=== PATIENT | male | born 1965 | race Caucasian/White ===

== ENCOUNTER 2024-06-20 07:52 | Day surgery (SDC) | payer BC, OTHER ==
--- NOTE | 2024-06-18 11:10 | HP ---
HISTORY AND PHYSICAL HISTORY OF PRESENT ILLNESS: The patient is a 59-year-old male who presents for screening colonoscopy. Last scope was 10 years ago. He has no symptoms. PAST MEDICAL HISTORY: Arthritis, dysrhythmia. HOME MEDICATIONS: Multivitamin, aspirin, D3. ALLERGIES: Negative. PAST SURGICAL HISTORY: Tonsillectomy, hernia, shoulder, cervical spine. SOCIAL HISTORY: Occasional alcohol. FAMILY HISTORY: Hypertension, coronary artery disease, COPD. REVIEW OF SYSTEMS: CONSTITUTIONAL: Denies fever or chills. CHEST: Denies shortness of breath. CARDIOVASCULAR: Denies chest pain. ABDOMEN: Denies abdominal pain. PHYSICAL EXAMINATION: GENERAL: No acute distress. CARDIOVASCULAR: Regular rate and rhythm. RESPIRATORY: Nonlabored. No shortness of breath. ABDOMEN: Soft. ASSESSMENT: Screening. PLAN: Colonoscopy with Dr. Fermin Aguila. This report was dictated for Dr. Aguila by Nellie Silvestre NP.
[2024-06-20] MEDS ORDERED: Lactated Ringers 1,000 ML IV SCH (08:30)
[2024-06-20] MEDS ORDERED: propofoL IV ONE ×2 (11:02→11:22)
[2024-06-20] MEDS ORDERED: GlucaGen 1 MG ONE (11:18)
[2024-06-20 12:04] VITALS: RESP 16
[2024-06-20 12:16] VITALS: BP 115/75; PULSE 61; TEMP 97.1; O2SAT 99
--- NOTE | 2024-06-21 12:31 | OP ---
SURGERY DATE/TIME: 06/20/2024 [id number] PREOPERATIVE DIAGNOSIS: Ten-year followup screening. POSTOPERATIVE DIAGNOSIS: Normal. At this stage, followup 10 years. PROCEDURES: Colonoscopy to cecum. SURGEON: Fermin Aguila MD PREP SCORE: Excellent. WITHDRAWAL TIME: 6 minutes. FINDINGS: Normal. INDICATIONS: The patient presented 10 years ago with a normal C-scope. He presents at this time for a 10-year followup. He has no symptoms. He has no family history. DESCRIPTION OF PROCEDURE AND FINDINGS: Digital anal exam is satisfactory. Prostate is satisfactory. Scope advanced to the cecum. Base of cecum, ileocecal valve and appendiceal orifice normal. Ascending, hepatic, transverse, splenic, descending, sigmoid, rectum, anus normal. Patient tolerated the procedure satisfactory. Follow up 10 years. Findings discussed with .
== END 2024-06-20 12:23 | disposition home or self-care (01) ==
LOC: SDC 07:52
PROVIDERS: ATTEND Surgery
DX: Z12.11 Encounter for screening for malignant neoplasm of colon (principal); I49.9 Cardiac arrhythmia, unspecified
CPT/HCPCS: 93005; J1610; J2704